=== PATIENT | male | born 1995 | race Caucasian/White ===

== ENCOUNTER 2017-02-03 14:30 | Emergency (ER) | payer SELFPAY ==
[~2017-02-03] VITALS: Ht 185.4 cm; Wt 78.0 kg
[2017-02-03 14:31] VITALS: BP 117/78
[2017-02-03] MEDS ORDERED: LIDOCAINE 1%, 20ML SQ ONE (15:00)
[2017-02-03] MEDS ORDERED: DIPH,PERTUSS(ACELL),TET VAC/PF 0.5 ML IM-VACC ONE ×2 (15:15→15:30)
[2017-02-03] MEDS ORDERED: LIDOCAINE 1%, 20ML ONE (15:15)
[2017-02-03] MEDS ORDERED: BACITRACIN ZINC OINT 500U/GM, 0.9 GM ONE (15:53)
== END 2017-02-03 16:07 | disposition home or self-care (01) ==
LOC: ED 15:55
DX: S01.81XA Laceration without foreign body of other part of head, initial encounter (principal); W19.XXXA Unspecified fall, initial encounter; Y93.89 Activity, other specified; Y99.8 Other external cause status; Y92.89 Other specified places as the place of occurrence of the external cause
CPT/HCPCS: 12051; 90471; 90715